=== PATIENT | male | born 1965 | race Caucasian/White ===

== ENCOUNTER 2018-02-10 12:25 | Day surgery (SDC) | payer BC ==
[2018-02-10] MEDS ORDERED: LIDOCAINE 2% MDV (20MG/ML) 20ML VIAL IV ONE (12:26)
[2018-02-10] MEDS ORDERED: PROPOFOL 10 MG/ML VIAL IV ONE (12:26)
--- NOTE | 2018-02-11 10:00 | Operative Note ---
DATE OF SURGERY: 02/10/2018 OPERATION: COLONOSCOPY to the cecum with cold biopsy forceps polypectomy x3. INDICATION: Colorectal cancer screening. This is the patient's first colonoscopy. ANESTHESIA: Intravenous sedation was administered by the department of anesthesiology and included Diprivan titrated to effect. PROCEDURE: Following informed consent from this alert individual including a discussion of the risks and benefits of the procedure and an opportunity for the patient to ask questions, the patient was in the left lateral decubitus position. A digital rectal examination was performed. No abnormalities were noted. Following this, the Olympus [id number] video colonoscope was inserted into the rectum without resistance. The rectal mucosa had a normal appearance with normal folds and distensibility. The colonoscope was advanced up through the bowel to the level of the cecum without much difficulty. Throughout the bowel the mucosa appeared normal, the folds were normal, and the bowel was fairly well distensible. Colon preparation was good. The cecum was defined by noting the appendiceal orifice and ileocecal valve. From the base of the cecum, the colonoscope was then slowly withdrawn. There were a few small diverticula noted in the sigmoid colon. There were also 3 diminutive hyperplastic-appearing polyps noted each removed with application of cold biopsy forceps. No other changes were appreciated. Retroflexion in the rectum did, however, demonstrate small internal hemorrhoids. The endoscope was removed. The patient tolerated the procedure well and was returned to the recovery area in stable condition. IMPRESSION: 1. Three hyperplastic-appearing polyps in the sigmoid colon removed with biopsy forceps. 2. Mild sigmoid diverticulosis. 3. Small internal hemorrhoids. RECOMMENDATIONS: Further recommendations will be forthcoming pending results of pathology obtained today. Followup will be with Dr. Dunbar as well. As always, thank you for allowing me to participate in the care of your patient. CC: SHANON DUNBAR MD, FACP [facility]
== END 2018-02-10 14:27 | disposition home or self-care (01) ==
LOC: HOP 12:25
PROVIDERS: ATTEND Internal Medicine Gastroenterology
DX: Z12.11 Encounter for screening for malignant neoplasm of colon (principal); D12.5 Benign neoplasm of sigmoid colon; K57.30 Diverticulosis of large intestine without perforation or abscess without bleeding; K64.8 Other hemorrhoids; I10 Essential (primary) hypertension; E78.00 Pure hypercholesterolemia, unspecified